=== PATIENT | male | born 1970 | race Caucasian/White ===

== ENCOUNTER 2018-09-25 18:40 | Emergency (ER) | payer SELFPAY ==
[2018-09-25] MEDS ORDERED: CATAPRES PO ONE (19:20)
--- NOTE | 2018-09-25 19:21 | Emergency Department Report ---
Blank Doc - Documentation Documentation: This is a 48-year-old male that presents with HTN and dizziness. Has HTN in tr iage. This initial assessment/diagnostic orders/clinical plan/treatment(s) is/are subject to change based on patient's health status, clinical progression and re- assessment by fellow clinical providers in the ED. Further treatment and workup at subsequent clinical providers discretion. Patient/guardians urged not to elope from the ED as their condition may be serious if not clinically assessed and managed. Initial orders include: 1- Patient sent to MAIN ED for further evaluation and treatment 2- labs 3- CT head 4- catapress 5- RN to repeat vitals
[2018-09-25] MEDS ORDERED: CATAPRES ONE (19:23)
[2018-09-25 19:47] LABS: Basophils % (Auto) 0.4 % (0.0-1.8); Eosinophils % (Auto) 0.4 % (0.0-4.3); Hemoglobin 17.5 gm/dl (11.8-15.2); Lymphocytes # (Auto) 2.5 K/mm3 (1.2-5.4); Lymphocytes % (Auto) 39.5 % (13.4-35.0); Mean Corpuscular HGB Conc 35 % (32-34); Mean Corpuscular Volume 95 fl (84-94); Monocytes # (Auto) 0.8 K/mm3 (0.0-0.8); Monocytes % (Auto) 12.5 % (0.0-7.3); Platelet Count 152 K/mm3 (140-440); Red Blood Count 5.27 M/mm3 (3.65-5.03); Red Cell Distribution Width 13.6 % (13.2-15.2)
[2018-09-25 20:04] LABS: BUN/Creatinine Ratio 17; Blood Urea Nitrogen 12 mg/dL (9-20); Calcium 9.5 mg/dL (8.4-10.2); Hemolysis Index 16
--- NOTE | 2018-09-25 21:02 | Cat Scan Report ---
PROCEDURE: CT HEAD/BRAIN WO CON TECHNIQUE: Computerized tomography of the head was performed without contrast material. CT DOSE LENGTH PRODUCT: 805.4 mGycm HISTORY: headache COMPARISONS: None . FINDINGS: Skull and scalp: Normal . Paranasal sinuses: Normal . Ventricles and subarachnoid spaces: Normal . Cerebrum: No evidence of hemorrhage, acute infarction or mass . Cerebellum and brainstem: No evidence of hemorrhage, acute infarction or mass . Vasculature: Normal . Other: None . ASPECTS: 10 IMPRESSION: Normal Examination . This document is electronically signed by Maco Rangel MD., September 25 2018 09:00:54 PM ET
[2018-09-25 23:05] VITALS: BP 139/89
--- NOTE | 2018-09-25 23:23 | Emergency Department Report ---
HPI - General Chief Complaint: Dizziness Time Seen by Provider: 09/25/18 19:19 - HPI HPI: Room 1 The patient is a 48-year-old male presenting with chief complaint of headache and dizziness. The patient states when he awakened this morning he felt dizzy and had a headache. The patient states she checked his blood pressure and got a reading of 187 systolic. The patient states he went to drink some water and 5 minutes later rechecked his blood pressure and his systolic had increased to 203. Patient states he's never been diagnosed with hypertension and has never been on medication. After administration of clonidine 0.2 mg in the ED his blood pressure is normalized and he is now asymptomatic Location: [See above] Duration: [See above] Quality: [See above] Severity: [See above] Modifying factors: [see above] Context: [see above] Mode of transportation: [not driving] ED Past Medical Hx - Past Medical History Previous Medical History?: No - Surgical History Past Surgical History?: Yes Hx Appendectomy: Yes - Family History Family history: no significant - Social History Smoking Status: Former Smoker (none 20 years) Substance Use Type: None (denies illicit drug use), Alcohol (moderate) - Medications Home Medications: Home Medications Medication Instructions Recorded Confirmed Last Taken Type amLODIPine [Norvasc] 5 mg PO DAILY #90 tab 09/25/18 Unknown Rx ED Review of Systems ROS: Stated complaint: HIGH BP Other details as noted in HPI Constitutional: no symptoms reported Eyes: denies: eye pain ENT: denies: throat pain Respiratory: no symptoms reported Cardiovascular: denies: chest pain Endocrine: no symptoms reported Gastrointestinal: denies: abdominal pain Genitourinary: denies: dysuria Musculoskeletal: denies: back pain Neurological: headache, other (dizziness) Physical Exam - Physical Exam Vital Signs: Vital Signs 09/25/18 09/25/18 09/25/18 19:19 22:23 23:05 Temperature 98.8 F Pulse Rate 105 H 88 84 Respiratory 18 17 18 Rate Blood Pressure 207/104 Blood Pressure 137/81 139/89 [Right] O2 Sat by Pulse 98 99 97 Oximetry Physical Exam: GENERAL: The patient is well-developed well-nourished male lying on stretcher not appearing to be in acute distress. [] HEENT: Normocephalic. Atraumatic. Extraocular motions are intact. Patient has moist mucous membranes. NECK: Supple. Trachea midline CHEST/LUNGS: Clear to auscultation. There is no respiratory distress noted. HEART/CARDIOVASCULAR: Regular. There is no tachycardia. There is no gallop rub or murmur. ABDOMEN: Abdomen is soft, nontender. Patient has normal bowel sounds. There is no abdominal distention. SKIN: There is no rash. There is no edema. There is no diaphoresis. NEURO: The patient is awake, alert, and oriented. The patient is cooperative. The patient has no focal neurologic deficits. The patient has normal speech. Cranial nerves II through XII grossly intact, no drift MUSCULOSKELETAL: There is no evidence of acute injury. ED Course Vital Signs 09/25/18 09/25/18 09/25/18 19:19 22:23 23:05 Temperature 98.8 F Pulse Rate 105 H 88 84 Respiratory 18 17 18 Rate Blood Pressure 207/104 Blood Pressure 137/81 139/89 [Right] O2 Sat by Pulse 98 99 97 Oximetry ED Medical Decision Making - Lab Data Result diagrams: 09/25/18 19:29 09/25/18 19:29 Laboratory Tests 09/25/18 09/25/18 19:29 19:29 WBC 6.4 RBC 5.27 H Hgb 17.5 H Hct 50.0 H MCV 95 H MCH 33 H MCHC 35 H RDW 13.6 Plt Count 152 Lymph % (Auto) 39.5 H [place] % (Auto) 12.5 H Eos % (Auto) 0.4 Baso % (Auto) 0.4 Lymph # 2.5 [place] # 0.8 Eos # 0.0 Baso # 0.0 Seg Neutrophils % 47.2 Seg Neutrophils # 3.0 Sodium 138 Potassium 4.0 Chloride 96.3 L Carbon Dioxide 29 Anion Gap 17 BUN 12 Creatinine 0.7 L Estimated GFR > 60 BUN/Creatinine Ratio 17 Glucose 161 H Calcium 9.5 - Radiology Data Radiology results: report reviewed (CT head), image reviewed (CT head) [facility] [address] [place] [address] Cat Scan Report Signed Patient: PREM SHETH MR#: [id number] 16 : 1970 Acct:[id number] Age/Sex: 48 / M ADM Date: 09/25/18 Loc: ED Attending Dr: Ordering Physician: MARIE NAPOLES NP Date of Service: 09/25/18 Procedure(s): CT head/brain wo con Accession Number(s): [id number] cc: MARIE NAPOLES NP PROCEDURE: CT HEAD/BRAIN WO CON TECHNIQUE: Computerized tomography of the head was performed without contrast material. CT DOSE LENGTH PRODUCT: 805.4 mGycm HISTORY: headache COMPARISONS: None . FINDINGS: Skull and scalp: Normal . Paranasal sinuses: Normal . Ventricles and subarachnoid spaces: Normal . Cerebrum: No evidence of hemorrhage, acute infarction or mass . Cerebellum and brainstem: No evidence of hemorrhage, acute infarction or mass . Vasculature: Normal . Other: None . ASPECTS: 10 IMPRESSION: Normal Examination . This document is electronically signed by Dyana Rangel MD., September 25 2018 09:00:54 PM ET Transcribed By: [facility] [place]ict[place] By: DYANA RANGEL Electronically Authenticated By: DYANA RANGEL Signed Date/Time: 09/25/182101 DD/ 14 TD/TT: 09/25/182014 - Differential Diagnosis hypertensive urgency, intracranial hemorrhage, intracranial mass Critical care attestation.: If time is entered above; I have spent that time in minutes in the direct care of this critically ill patient, excluding procedure time. ED Disposition Clinical Impression: Hypertensive urgency, Headache Disposition: DC-01 TO HOME OR SELFCARE Is pt being admited?: No Does the pt Need Aspirin: No Condition: Stable Instructions: Hypertensive Crisis (ED), Hypertension (ED) Additional Instructions: Return to the emergency department immediately should you develop worsening symptoms, fever, inability to tolerate food or liquid or any other concerns. Prescriptions: amLODIPine [Norvasc] 5 mg PO DAILY #90 tab Referrals: [facility] MD RYDER [Primary Care Provider] - 3-5 Days LUIS GALVEZ MD [Staff Physician] - 3-5 Days (Dr. Galvez is a primary physicia n. Please follow up with him to be established as a patient) Time of Disposition: 23:23
== END 2018-09-25 23:29 | disposition home or self-care (01) ==
LOC: ED 18:40
DX: I16.0 Hypertensive urgency (principal); R42 Dizziness and giddiness; R03.0 Elevated blood-pressure reading, without diagnosis of hypertension; Z87.891 Personal history of nicotine dependence; Z90.89 Acquired absence of other organs
CPT/HCPCS: 36415; 70450; 80048; 85025